=== PATIENT | female | born 2005 | race Asian ===

== ENCOUNTER 2024-01-08 06:50 | Outpatient (REF) | payer OTHER, SELFPAY ==
--- NOTE | ~2024-01-08 | US_ITS ---
EXAMINATION: US PELVIS CLINICAL INFORMATION: Abnormal vaginal bleeding. COMPARISON: None available. TECHNIQUE: Ultrasound of the pelvis is performed using both transabdominal and transvaginal transducers along with Doppler. Transvaginal imaging is performed due to inadequate visualization transabdominally. FINDINGS: Uterus: The uterus is anteverted and measures 4.8 x 2.6 x 4.1 cm. The double wall endometrial thickness is 3 mm. The uterus is smooth in contour and has normal myometrial echogenicity. No visible fibroid. An IUD is present which is positioned low in the uterus only 7 mm from the internal os. Adnexa: Both ovaries are visualized. Multiple small peripheral follicles are seen, significantly greater on the right. There is normal color flow to the adnexa. There is no ovarian torsion. There is no pelvic ascites or fluid collection. Right ovary measures 3.0 x 1.6 x 2.6 cm for a volume of 11.2 mL. Left ovary measures 2.8 x 2.8 x 3.5 cm for a volume of 12.5 mL. US/US pelvic and transvaginal IMPRESSION: 1. IUD is positioned low in the uterus only 7 mm from the internal os. 2. Multiple small peripheral follicles in the ovaries, greater on the right. This can be seen with polycystic ovarian syndrome. Electronically signed by: Georges Roberts MD 01/08/2024 10:36 PM [facility]
== END 2024-01-08 06:51 | disposition home or self-care (01) ==
LOC: HO.UMASIMG 06:50
PROVIDERS: Visit Provider Registered Nurse
DX: N93.9 Abnormal uterine and vaginal bleeding, unspecified (principal)
CPT/HCPCS: 76830; 76856